=== PATIENT | female | born 1990 | race Caucasian/White ===

== ENCOUNTER 2016-10-22 19:00 | Emergency (ER) | payer SELFPAY ==
[2016-10-22 19:30] VITALS: BP 115/61
[2016-10-22 20:32] LABS: AMORPHOUS SEDIMENT,URINE TRACE /HPF; APPEARANCE,URINE TURBID; BILIRUBIN,URINE NEGATIVE (NEGATIVE); GLUCOSE, URINE NEGATIVE (NEGATIVE); KETONES,URINE NEGATIVE (NEGATIVE); LEUKOCYTE ESTERASE,URINE MODERATE (NEGATIVE); NITRITE,URINE NEGATIVE (NEGATIVE); PROTEIN,URINE NEGATIVE (NEGATIVE); URINE SPECIFIC GRAVITY 1.021; UROBILINOGEN,URINE NEGATIVE mg/dL (<2.0)
[2016-10-22] MEDS ORDERED: AZITHROMYCIN 250 MG TABLET PO ONE (21:28)
[2016-10-22] MEDS ORDERED: CEFTRIAXONE INJ 250 MG VIAL IM ONE (21:28)
[2016-10-22] MEDS ORDERED: NITROFURANTOIN MONOHYD/M-CRYST 100 MG CAPSULE PO ONE (21:28)
[2016-10-22] MEDS ORDERED: LIDOCAINE 1% INJ-PF (10 MG/ML) 30 ML SDV INJ ONE (21:28)
--- NOTE | 2016-10-22 21:28 | ER Document Report ---
ED GI/ - General Chief Complaint: STD Exposure Stated Complaint: POSSIBLE STD Time Seen by Provider: 10/22/16 21:27 Mode of Arrival: Ambulatory Information source: Patient Notes: 26-year-old female presents to ED for STD examination. She states that her boyfriend was tested positive for gonorrhea several months ago and was treated but she was never treated. She states she is now having a vaginal discharge is green and slimy with an odor. She denies any discomfort. She states she has about 4 months . TRAVEL OUTSIDE OF THE [place] IN LAST 30 DAYS: No - HPI Patient complains to provider of: Vaginal discharge Onset: Other Timing/Duration: Gradual Quality of pain: No pain Pain Level: Denies Vaginal bleeding (Compared to normal period): None Menstrual period history: Associated symptoms: Vaginal discharge Exacerbated by: Denies Relieved by: Denies Similar symptoms previously: No Recently seen / treated by doctor: No - Related Data Allergies/Adverse Reactions: No Known Allergies Allergy (Verified 10/22/16 19:25) Past Medical History - General Information source: Patient - Social History Smoking Status: Current Every Day Smoker Cigarette use (# per day): Yes - Pack per day Chew tobacco use (# tins/day): No Smoking Education Provided: Yes - Less than 2 minutes Frequency of alcohol use: None - States she drank up until she found out she was Drug Abuse: None - Up until she found out she was Occupation: none Lives with: Spouse/Significant other Family History: Reviewed & Not Pertinent - Past Medical History Cardiac Medical History: Reports: None Pulmonary Medical History: Reports: None EENT Medical History: Reports: None Neurological Medical History: Reports: None Endocrine Medical History: Reports: None Renal/ Medical History: Reports: None Malignancy Medical History: Reports: None GI Medical History: Reports: None Musculoskeltal Medical History: Reports Hx Fibromyalgia, Reports Hx Musculoskeletal Deformity, Reports Hx Musculoskeletal Trauma Skin Medical History: Reports Hx Cellulitis Psychiatric Medical History: Reports: Hx Anxiety, Hx Attention Deficit Hyperactivity Disorder, Hx Bipolar Disorder, Hx Depression, Hx Post Traumatic Stress Disorder Traumatic Medical History: Reports: None Infectious Medical History: Reports: None Past Surgical History: Reports: Hx Orthopedic Surgery - right hand, - Immunizations Immunizations up to date: Yes Hx Diphtheria, Pertussis, Tetanus Vaccination: Yes - 2010 Review of Systems - Review of Systems Constitutional: No symptoms reported EENT: No symptoms reported Cardiovascular: No symptoms reported Respiratory: No symptoms reported Gastrointestinal: No symptoms reported Genitourinary: No symptoms reported Female Genitourinary: , Vaginal discharge, Vaginal odor. denies: Vaginal bleeding Musculoskeletal: No symptoms reported Skin: No symptoms reported Hematologic/Lymphatic: No symptoms reported Neurological/Psychological: No symptoms reported -: Yes All other systems reviewed and negative Physical Exam - Vital signs Vitals: Temp Pulse Resp BP Pulse Ox 97.9 F 78 18 115/61 99 10/22/16 19:26 10/22/16 19:26 10/22/16 19:26 10/22/16 19:26 10/22/16 19:26 Interpretation: Normal - General General appearance: Appears well, Alert - HEENT Head: Normocephalic, Atraumatic Eyes: Normal Pupils: PERRL - Respiratory Respiratory status: No respiratory distress Chest status: Nontender Breath sounds: Normal Chest palpation: Normal - Cardiovascular Rhythm: Regular Heart sounds: Normal auscultation Murmur: No - Abdominal Inspection: Normal Distension: No distension Bowel sounds: Normal Tenderness: Nontender Organomegaly: No organomegaly - Back Back: Normal, Nontender - Extremities General upper extremity: Normal inspection, Nontender, Normal color, Normal ROM , Normal temperature General lower extremity: Normal inspection, Nontender, Normal color, Normal ROM , Normal temperature, Normal weight bearing. No: Angelique's sign - Neurological Neuro grossly intact: Yes Cognition: Normal Orientation: AAOx4 Amy Coma Scale Eye Opening: Spontaneous [place] Coma Scale Verbal: Oriented Amy Coma Scale Motor: Obeys Commands [place] Coma Scale Total: 15 Speech: Normal Motor strength normal: LUE, RUE, LLE, RLE Sensory: Normal - Psychological Associated symptoms: Normal affect, Normal mood - Skin Skin Temperature: Warm Skin Moisture: Dry Skin Color: Normal Course - Re-evaluation Re-evalutation: 10/22/16 21:47 Patient denies any pain or discomfort. Bowel sounds are present no pelvic tenderness. Urine was positive for UTI and bacteria. Due to patient's vaginal discharge she will be treated with the azithromycin and Rocephin injection. She will be given Macrobid for her UTI. 10/22/16 22:11 Patient was called and informed that she was positive for gonorrhea she has already been treated with Rocephin and azithromycin. 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 - Vital Signs Vital signs: Temp Pulse Resp BP Pulse Ox 97.9 F 78 18 115/61 99 10/22/16 19:26 10/22/16 19:26 10/22/16 19:26 10/22/16 19:26 10/22/16 19:26 - Laboratory Laboratory results interpreted by me: 10/22/16 10/22/16 20:10 20:10 Ur Leukocyte Esterase MODERATE H N.gonorrhoeae DNA (PCR) DETECTED H Discharge - Discharge Clinical Impression: Vaginitis Qualifiers: Chronicity: acute Qualified Code(s): N76.0 - Acute vaginitis Condition: Stable Disposition: HOME, SELF-CARE Instructions: [employer]-Make Ready Worker Doctors Additional Instructions: VAGINITIS: Your exam shows that you have vaginitis, a vaginal infection. The infection can be caused by a many different organisms, including trichomonas or Gardnerella. The usual symptoms are vaginal irritation and discharge. The treatment is usually antibiotics such as Flagyl. Laboratory tests can determine which germ is responsible. Use the medication as prescribed. Because this infection can be transmitted sexually, your sexual partner may need to be checked and treated also. If your physician has not discussed this with you, please check before resuming sexual relations. If a culture shows gonorrhea or chlamydia, the infection must be reported to the health department. Call the doctor if you develop pelvic pain, fever, or problems with urination, or if you don't improve as expected. URINARY TRACT INFECTION: Your evaluation indicates that you have a urinary tract infection. This is due to germs growing in the bladder. This is a common problem. This infection usually responds quickly to antibiotics. Your antibiotic should be taken exactly as prescribed. Drink plenty of fluids -- three to four quarts a day. Occasionally, a bladder anesthetic will be prescribed to help stop the feeling of urgency until the antibiotic has a chance to clear the infection. This may cause your urine to be dark orange. Certain urine infections require a culture. If the doctor obtained a culture, the results will be back in two days. You should call to see if a change in treatment is needed. A repeat urinalysis after you finish treatment is often recommended. The physician will let you know if further testing is required. Call the doctor if you develop fever, chills, flank pain, inability to urinate, or blood in the urine. NITROFURANTOIN (MACRODANTIN, MACROBID): You have received a prescription for nitrofurantoin (Macrodantin). This antibiotic is used for urinary tract infections. Women who are or nursing should notify the physician before taking this medicine. If you have ever had a problem caused by this medication in the past, be sure the physician is aware of it. Common side effects of this medicine include nausea, vomiting, or decreased appetite. Notify your physician if these side effects become severe. Immediately stop this medicine and call the physician if you develop cough , shortness of breath, chest pain, weakness, jaundice (yellow color of the skin and whites of the eyes), or a skin rash. Rocephin You have been given an injection of an antibiotic called Rocephin ( ceftriaxone). Sometimes the injection must be combined with antibiotic pills. For some infections, such as an uncomplicated ear infection, Rocephin provides all the antibiotic that's needed. The antibiotic will be in your body for about two days. For serious infections, we usually repeat doses of Rocephin daily. Side effects are very unusual following a shot. Women may develop vaginal yeast infections, and babies can get yeast (thrush) in the mouth following the use of antibiotics. Contact your physician if you have symptoms with this medication. Allergy to this antibiotic can result in hives, wheezing, faintness, or itching. If symptoms of allergy occur, call the doctor at once. AZITHROMYCIN: Azithromycin (Zithromax) is a broad spectrum antibiotic in the same class as erythromycin. It can treat a variety of bacterial infections, but is most frequently used for respiratory infections. Azithromycin is extremely long-lasting. It accumulates in body tissues and continues to kill bacteria for many days. In order to improve absorption, Azithromycin should be taken at least one hour before or two hours after a meal. It does not have the same strong tendency to upset the stomach as erythromycin and is usually very well tolerated. Patients who have had a rash or other true allergic reactions to erythromycin should not take this medication. Call if you develop gastrointestinal distress, severe diarrhea, rash, hives, itching, or shortness of breath. FOLLOW-UP CARE: If you have been referred to a physician for follow-up care, call the physician s office for an appointment as you were instructed or within the next two days. If you experience worsening or a significant change in your symptoms, notify the physician immediately or return to the Emergency Department at any time for re-evaluation. Prescriptions: Nitrofurantoin/Nitrofuran Mac [Macrobid 100 mg Capsule] 1 tab PO BID #20 capsule
[2016-10-22 22:00] LABS: CHLAM PCR NOT DETECTED (NOT DETECT)
== END 2016-10-22 21:54 | disposition home or self-care (01) ==
LOC: ER 19:00
DX: O98.219 Gonorrhea complicating pregnancy, unspecified trimester (principal); A54.02 Gonococcal vulvovaginitis, unspecified; O23.40 Unspecified infection of urinary tract in pregnancy, unspecified trimester; O99.330 Smoking (tobacco) complicating pregnancy, unspecified trimester; F17.210 Nicotine dependence, cigarettes, uncomplicated; Z3A.00 Weeks of gestation of pregnancy not specified
CPT/HCPCS: 99283; 96372; 87086; 81001; 87491; 87591; J3490; J0696; J8499

== ENCOUNTER 2017-01-19 09:45 | Outpatient (CLI) | payer SELFPAY ==
[2017-01-19 10:35] LABS: APPEARANCE,URINE CLOUDY; BILIRUBIN,URINE NEGATIVE (NEGATIVE); GLUCOSE, URINE NEGATIVE (NEGATIVE); KETONES,URINE 80 mg/dL (NEGATIVE); LEUKOCYTE ESTERASE,URINE NEGATIVE (NEGATIVE); NITRITE,URINE NEGATIVE (NEGATIVE); PROTEIN,URINE 30 mg/dL (NEGATIVE); URINE SPECIFIC GRAVITY 1.028
[2017-01-19 10:44] LABS: BACTERIA,URINE 2+ /HPF
[2017-01-19 11:10] LABS: URINE BARBITURATES SCREEN NEGATIVE; URINE METHADONE SCREEN NEGATIVE; URINE OPIATES LOW NEGATIVE; URINE PHENCYCLIDINE SCREEN NEGATIVE
--- NOTE | 2017-01-19 11:49 | RADIOLOGY REPORT (SQ) ---
EXAM DESCRIPTION: U/S OB 14+ TRNABD 1GES W/O DOP COMPLETED DATE/TIME: 01/19/2017 11:25 am REASON FOR STUDY: NPC, dates, complete OB, placenta, S/P fall, ABD p COMPARISON: None. TECHNIQUE: Static and Dynamic grayscale imaging performed of gravid uterus using transabdominal appr oach. Additional selected color Doppler and spectral images recorded. All stored on PACS. LIMITATIONS: None. FINDINGS: EGA: 20 weeks 3 days DAWSON: 04/10/2017 EFW: 1229 +/-182 grams PERCENTILE: 29 KAREN: 10.9 cm PLACENTA: Posterior GRADE: I PRESENTATION: Breech. ANATOMY: HEART RATE: 147 beats per minute. FOUR CHAMBER HEART: Visualized. THREE VESSEL CORD: Yes. CORD INSERTION: Visualized. KIDNEYS AND BLADDER: Visualized. Appear normal. STOMACH: Visualized. Appears normal. SPINE: Normal as visualized. BRAIN AND LATERAL VENTRICLES: Visualized. Appear normal. OTHER: No other significant finding. MATERNAL ADNEXA: Maternal ovaries not visualized. CERVICAL LENGTH: Not applicable. Greater than 20 weeks. Need transvaginal study if indicated. OTHER: No other significant finding. IMPRESSION: LIVING INTRAUTERINE . ESTIMATED GESTATIONAL AGE 20 weeks 3 days. NO VISUALIZED ANOMALIES. Trimester of : Third trimester - 28 weeks to delivery. TECHNICAL DOCUMENTATION: JOB ID: [id number] [employer]- All Rights Reserved
[2017-01-19 12:08] LABS: ABSOLUTE EOSINOPHILS # (AUTO) 0.1 10^3/uL (0.0-0.6); ABSOLUTE LYMPHOCYTES (AUTO) 2.9 10^3/uL (0.5-4.7); ABSOLUTE NEUT (AUTO) 6.8 10^3/uL (1.7-8.2); BASOPHILS % (AUTO) 0.3 % (0-2); EOSINOPHILS % (AUTO) 0.7 % (0-6); HEMATOCRIT 27.5 % (36.0-47.0); HEMOGLOBIN 9.6 g/dL (12.0-15.5); HGB HCT DIFFERENCE 1.3; MEAN CORPUSCULAR HEMOGLOBIN 31.3 pg (27.0-33.4); MEAN CORPUSCULAR VOLUME 90 fl (80-97); MONOCYTES % (AUTO) 9.3 % (3-13); RED BLOOD COUNT 3.07 10^6/uL (3.72-5.28); RED CELL DISTRIBUTION WIDTH 13.3 % (11.5-14.0); SEGMENTED NEUTROPHILS % (AUTO) 62.7 % (42-78); WHITE BLOOD COUNT 10.8 10^3/uL (4.0-10.5)
[2017-01-19 13:06] LABS: ADD HIVPANEL? NO; HIV (1 AND 2) ANTIBODY NEGATIVE (NEGATIVE)
== END 2017-01-19 12:05 | disposition home or self-care (01) ==
LOC: LC 09:45
PROVIDERS: ATTEND Obstetrics & Gynecology
PROC: 4A1HXCZ Monitoring of Products of Conception, Cardiac Rate, External Approach (ICD-10-PCS; principal; 2017-01-19)
DX: O47.02 False labor before 37 completed weeks of gestation, second trimester (principal); M54.9 Dorsalgia, unspecified; R07.81 Pleurodynia; Z3A.20 20 weeks gestation of pregnancy; W19.XXXA Unspecified fall, initial encounter
CPT/HCPCS: 59899; 86900; 86901; 36415; 87210; 86850; 85025; 86762; 86592; 81001; 87081; 87340; 86701; 80307 ×2; 87491; 87591; 76805; G0480 ×3

== ENCOUNTER 2017-03-27 21:00 | Outpatient (CLI) | payer SELFPAY ==
[2017-03-27 21:34] LABS: APPEARANCE,URINE CLOUDY; BILIRUBIN,URINE NEGATIVE (NEGATIVE); COLOR,URINE YELLOW; GLUCOSE, URINE NEGATIVE (NEGATIVE); KETONES,URINE NEGATIVE (NEGATIVE); LEUKOCYTE ESTERASE,URINE NEGATIVE (NEGATIVE); NITRITE,URINE NEGATIVE (NEGATIVE); PROTEIN,URINE NEGATIVE (NEGATIVE); URINE SPECIFIC GRAVITY 1.018
[2017-03-27 21:50] LABS: URINE BARBITURATES SCREEN NEGATIVE; URINE COCAINE SCREEN NEGATIVE; URINE METHADONE SCREEN NEGATIVE; URINE PHENCYCLIDINE SCREEN NEGATIVE
[2017-03-27 21:57] LABS: URINE BENZODIAZEPINES SCREEN UNCONFIRMED POSITIVE
[2017-03-27 21:58] LABS: URINE AMPHETAMINES SCREEN UNCONFIRMED POSITIVE; URINE MARIJUANA (THC) SCREEN UNCONFIRMED POSITIVE
[2017-04-05 12:37] LABS: BENZODIAZEPINE CONFIRMATION UR Negative (Cutoff=300)
[2017-04-05 13:36] LABS: AMPHETAMINE CONFIRMATION UR Positive (.)
== END 2017-03-27 22:54 | disposition home or self-care (01) ==
LOC: LC 21:00
PROVIDERS: ATTEND Obstetrics & Gynecology
PROC: 4A1HXCZ Monitoring of Products of Conception, Cardiac Rate, External Approach (ICD-10-PCS; principal; 2017-03-27)
DX: O47.1 False labor at or after 37 completed weeks of gestation (principal); Z3A.38 38 weeks gestation of pregnancy
CPT/HCPCS: 59025; 81005; 80307 ×2; G0480 ×5

== ENCOUNTER 2017-10-25 13:04 | Emergency (ER) | payer MEDICAID ==
[2017-10-25] MEDS ORDERED: MUPIROCIN 2% OINTMENT 22 GM TP ONE (14:05)
[2017-10-25] MEDS ORDERED: CEPHALEXIN 500 MG CAPSULE PO ONE (14:05)
--- NOTE | 2017-10-25 14:06 | ER Document Report ---
HPI - HPI Patient complains to provider of: Skin sores and anxiety Onset: Last week Onset/Duration: Persistent Pain Level: 3 Context: 27-year-old female that has a history of anxiety had a skin lesion on the dorsal left foot that she was given antibiotics for but she could not fill a prescription. She now has a crusted lesions on her face. Her psychiatrist that was prescribing Xanax Cymbalta and another benzodiazepine lost her license so she has to find another psychiatrist. She is feeling some anxiety but no withdrawal symptoms. Associated Symptoms: None Exacerbated by: Other - see above Relieved by: Denies - ROS ROS below otherwise negative: Yes Systems Reviewed and Negative: Yes All other systems reviewed and negative - REPRODUCTIVE Reproductive: DENIES: : Past Medical History - General Information source: Patient - Social History Smoking Status: Unknown if Ever Smoked Frequency of alcohol use: None Drug Abuse: None Lives with: Family Family History: Reviewed & Not Pertinent Endocrine Medical History: Renal/ Medical History: Denies: Hx Peritoneal Dialysis Musculoskeletal Medical History: Reports Hx Fibromyalgia, Reports Hx Musculoskeletal Deformity, Reports Hx Musculoskeletal Trauma Skin Medical History: Reports Hx Cellulitis Psychiatric Medical History: Reports: Hx Anxiety, Hx Attention Deficit Hyperactivity Disorder, Hx Bipolar Disorder, Hx Depression, Hx Post Traumatic Stress Disorder Past Surgical History: Reports: Hx Orthopedic Surgery - right hand, - Immunizations Immunizations up to date: Yes Hx Diphtheria, Pertussis, Tetanus Vaccination: Yes - 2010 Vertical Provider Document - CONSTITUTIONAL Agree With Documented VS: Yes Exam Limitations: No Limitations - INFECTION CONTROL TRAVEL OUTSIDE OF THE [place] IN LAST 30 DAYS: No - HEENT HEENT: negative: Conjuctival Injection Notes: 4 facial impetigo lesions no lymphangitis - NECK Neck: Supple. negative: Lymphadenopathy-Left, Lymphadenopathy-Right - RESPIRATORY Respiratory: Breath Sounds Normal, No Respiratory Distress - CARDIOVASCULAR Cardiovascular: Regular Rate, Regular Rhythm - MUSCULOSKELETAL/EXTREMETIES Musculoskeletal/Extremeties: MAEW - NEURO Level of Consciousness: Awake - DERM Notes: Impetigo lesion dorsal left foot no lymphangitis Course - Vital Signs Vital signs: Temp Pulse Resp BP Pulse Ox 97.5 F 106 H 16 111/67 100 10/25/17 13:36 10/25/17 13:36 10/25/17 13:36 10/25/17 13:36 10/25/17 13:36 Discharge - Discharge Clinical Impression: Impetigo, Anxiety Condition: Good Disposition: HOME, SELF-CARE Instructions: Anxiety ([facility]), Bactroban Ointment ([facility]), Benzodiazepines ([facility]), Cephalexin ([facility]), Impetigo ([facility]) Additional Instructions: Using antibacterial soap that has been given to you Bactroban small amount each of the areas 3 times a day for 5 days Cephalexin until it is gone New resources given for psychiatric counseling in the community Return to the emergency room for any worsening of the symptoms Prescriptions: Alprazolam [Xanax 0.25 mg Tablet] 0.25 mg PO QHS #20 tab Cephalexin Monohydrate [Keflex 500 mg Capsule] 500 mg PO QID #28 capsule
[2017-10-25 14:49] VITALS: BP 110/63
== END 2017-10-25 14:49 | disposition home or self-care (01) ==
LOC: ER 13:04
DX: L01.00 Impetigo, unspecified (principal); F41.9 Anxiety disorder, unspecified
CPT/HCPCS: 99283; J3490

== ENCOUNTER 2018-03-10 08:20 | Inpatient (IN) | payer MEDICAID ==
[2018-03-10] MEDS ORDERED: LIDOCAINE 1% INJ-PF (10 MG/ML) 30 ML SDV ONE ×2 (08:44→09:12)
[2018-03-10] MEDS ORDERED: OXYTOCIN/NORMAL SALINE 0 UNIT/0 ML RTUINJ ONE (08:44)
[2018-03-10] MEDS ORDERED: MISOPROSTOL 0.2 MG TABLET ONE ×2 (08:44→09:11)
[2018-03-10] MEDS ORDERED: PENICILLIN G-K 5 MILLION UNIT VIAL ONE (08:45)
--- NOTE | 2018-03-10 08:56 | Admission Physical ---
Datetime Report Generated by CPN: 03/10/2018 08:56 CURRENT ADMISSION Chief Complaint: Uterine Contractions; Suspected Ruptured Membranes Chief Complaint Other: PNC elsewhere, no records yet states DAWSON 03/31/18 has been getting PNC at [place] but recently moved Denies complications Hx 2 Term Close interval Preg-- 03/2017 Indication for Induction: Not Applicable Admit Impression : Active Labor Admit Plan: Initiate Labor Protocol Admit Plan- Other: GBS unknown, treat prophylactically ALLERGIES Medication Allergies: No Medication Allergies: No Known Allergies (10/25/2017) Latex: No Latex Allergies OBSTETRICAL HISTORY EDC: 03/31/2018 00:00 : 5 Para: 2 Term: 2 Cesareans: 0 Gestational Diabetes: No Rh Sensitization: No Incompetent Cervix: No BHAVIN: No Infertility: No ART Treatment: No Uterine Anomaly: No IUGR: No Hx Previous C/S: No Macrosomia: No Hx Loss/Stillborn: No PIH: No Hx : No Depression/PP Depression: No PTL/PROM: No Post Hemorrhage: No Current Procedures: Ultrasound Obstetrical History Comments: Hep C-Diagnosed 04/09/2017 SEE RECORDS Alcohol: No Marijuana : No Cocaine: No Other Illicit Drugs: No Cigarettes: Current Everyday Smoker. [id number] Cigarette Frequency: 5 - 10 per day Advised to Stop: Yes MEDICAL HISTORY Diabetes: No Blood Transfusion: No Pulmonary Disease (Asthma, TB): No Breast Disease: No Hypertension: No Curtain Mender Surgery: No Anesthetic Complications: No Abnormal Pap Smear: No Other Medical Diseases: No Hepatitis/Liver Disease: Yes Significant Family History: No Varicosities/Phlebitis: No Trauma/Violence : No Thyroid Dysfunction: No INFECTIOUS HISTORY Gonorrhea: No Genital Herpes: No Chlamydia: No Tuberculosis: No Syphilis: No Hepatitis: Yes HIV/AIDS Exposure: No Rash or Viral Illness: No HPV: No Infectious History Comments: HSV last putbreak years ago, no supressive therapy PHYSICAL EXAM General: Normal HEENT: Deferred Neurologic: Normal Thyroid: Deferred Heart: Normal Lungs: Normal Breast: Deferred Back: Deferred Abdomen: Normal Genitourinary Exam: Normal Extremities: Normal DTRs: Deferred Pelvic Type: Adequate VAGINAL EXAM Dilatation: 5 Effacement: 80 Station: -1 Contraction Comments: 2-4 min FETUS A EGA: 37.0 FHR- Baseline: 140 Variability: Moderate 6-25bpm Decelerations: None Admit Comment: PN records requested PLANS FOR LABOR AND DELIVERY Labor and Delivery: None Pain Management: Epidural Circumcision: N/A INFORMED CONSENT Assignment: Dilcia Murphy MD Signature: with User ID: [email or web address] : with User ID: [email or web address]
[2018-03-10] MEDS ORDERED: RINGERS SOLUTION,LACTATED 1,000 ML IV ONE (09:00)
[2018-03-10] MEDS ORDERED: RINGERS SOLUTION,LACTATED 1,000 ML IV PRN (09:00)
[2018-03-10] MEDS ORDERED: OXYTOCIN/NORMAL SALINE 20 UNIT/1,000 ML RTUINJ ONE (09:12)
[2018-03-10 10:23] LABS: HEMATOCRIT 31.3 % (36.0-47.0); HEMOGLOBIN 10.9 g/dL (12.0-15.5); MEAN CORPUSCULAR HEMOGLOBIN 31.3 pg (27.0-33.4); MEAN CORPUSCULAR HGB CONC 34.8 g/dL (32.0-36.0); MEAN CORPUSCULAR VOLUME 90 fl (80-97); PLATELET COUNT 221 10^3/uL (150-450); RED BLOOD COUNT 3.48 10^6/uL (3.72-5.28); RED CELL DISTRIBUTION WIDTH 13.8 % (11.5-14.0); WHITE BLOOD COUNT 11.5 10^3/uL (4.0-10.5)
[2018-03-10] MEDS ORDERED: IBUPROFEN 800 MG TABLET ONE (10:45)
[2018-03-10] MEDS ORDERED: BENZOCAINE/MENTHOL AEROSOL SPRAY 56 ML ONE (10:46)
[2018-03-10] MEDS ORDERED: OXYTOCIN/NORMAL SALINE 20 UNIT/1,000 ML RTUINJ IV PRN (11:18)
[2018-03-10] MEDS ORDERED: BENZOCAINE/MENTHOL AEROSOL SPRAY 56 ML TOP PRN (11:18)
[2018-03-10] MEDS ORDERED: MEASLES,MUMPS&RUBELLA VACC/PF 0.5 ML VIAL SUBCUT PRN (11:18)
[2018-03-10] MEDS ORDERED: ACETAMINOPHEN WITH CODEINE #3 TABLET PO PRN (11:18)
[2018-03-10] MEDS ORDERED: DIBUCAINE 1% OINTMENT 28 GM TP PRN (11:18)
[2018-03-10] MEDS ORDERED: ZOLPIDEM TARTRATE 5 MG TABLET PO PRN (11:18)
[2018-03-10] MEDS ORDERED: DIPH/PERTUSS(ACELL)/TETANUS VAC/PF 0.5 ML SYR (>=10YO) IM PRN (11:18)
[2018-03-10 11:21] LABS: APPEARANCE,URINE CLEAR; BILIRUBIN,URINE NEGATIVE (NEGATIVE); COLOR,URINE YELLOW; GLUCOSE, URINE NEGATIVE (NEGATIVE); KETONES,URINE NEGATIVE (NEGATIVE); LEUKOCYTE ESTERASE,URINE NEGATIVE (NEGATIVE); NITRITE,URINE NEGATIVE (NEGATIVE); PROTEIN,URINE NEGATIVE (NEGATIVE); URINE SPECIFIC GRAVITY 1.027
[2018-03-10] MEDS ORDERED: PENICILLIN G POTASSIUM 5,000,000 UNIT in DEXTROSE 5%-WATER 100 ML IV ONE (11:30)
[2018-03-10 11:37] LABS: URINE AMPHETAMINES SCREEN NEGATIVE; URINE BARBITURATES SCREEN NEGATIVE; URINE BENZODIAZEPINES SCREEN NEGATIVE; URINE COCAINE SCREEN NEGATIVE; URINE METHADONE SCREEN NEGATIVE; URINE PHENCYCLIDINE SCREEN NEGATIVE
[2018-03-10 11:43] LABS: URINE MARIJUANA (THC) SCREEN UNCONFIRMED POSITIVE
[2018-03-10] MEDS ORDERED: PENICILLIN G POTASSIUM 2,500,000 UNIT in DEXTROSE 5%-WATER 50 ML IV SCH (13:03)
--- NOTE | 2018-03-10 14:34 | Delivery Summary ---
Del Sum A-C Datetime Report Generated by CPN: 03/10/2018 14:34 DELIVERY PERSONNEL DELIVERY PERSONNEL: [id number] Delivery Doctor:: Steph Gama CNM Nurse Broach Grinder Certified:: Steph Gama CNM Labor and Delivery Nurse:: Renata White RNdye expert Nurse:: JASON Orellana Nursery Nurse:: Brennen Davalos/BELA: Hortensia Campos CNA II MATERNAL INFORMATION Delivery Anesthesia: None Medications After Delivery: Pitocin Bolus-Please Comment Estimated Blood Loss (ml): 150 Maternal Complications: Precipitous Labor (<3hrs) Provider Comments: SVDVF over intact perineum OA Infant vigorous, to mothers abd, rigid muscle tone noted cord clamped x 2 cut per FOB, 3vc noted placenta intact via arndt large amount clear fluid with delivery Bleeding stabilized FF@ U mother and infant stable LABOR SUMMARY EDC: 04/06/2018 00:00 No. Babies in Womb: 1 Attempted: No Labor Anesthesia: Intrathecal LABOR INFORMATION Reason for Induction: Not Applicable Onset of Labor: 03/10/2018 08:00 Complete Dilatation: 03/10/2018 10:15 Oxytocin: N/A Group B Beta Strep: pos Antibiotics # of Doses: 1 Antibiotics Time of Last Dose: 906 Name of Antibiotic Given: Pennicillin MEMBRANES Membranes Rupture Method: Spontaneous Rupture of Membranes: 03/10/2018 06:00 Length of Rupture (hr): 4.58 Amniotic Fluid Color: Clear Amniotic Fluid Amount: Scant Amniotic Fluid Odor: Normal STAGES OF LABOR Stage 1 hr: 2 Stage 1 min: 15 Stage 2 hr: 0 Stage 2 min: 20 Stage 3 hr: 0 Stage 3 min: 4 Total Time in Labor hr: 2 Total Time in Labor min: 39 VAGINAL DELIVERY Episiotomy: None Laceration #1: Periurethral Laceration Extension #1: First Degree Laceration Repair: Not Applicable Laceration Repair Note: no repairs needed Sponge Count Correct: Yes BABY A INFORMATION Delivery Date/Time: 03/10/2018 10:35 Method of Delivery: Vaginal Born in Route : No : N/A Forceps: N/A Vacuum Extraction: N/A Shoulder Dystocia : No PRESENTATION/POSITION BABY A Presentation: Cephalic Cephalic Presentation: Vertex Vertex Position: Left Occipital Anterior Breech Presentation: N/A PLACENTA INFORMATION BABY A Placenta Delivery Time : 03/10/2018 10:39 Placenta Method of Delivery: Spontaneous Placenta Status: Delivered SCORES BABY A Heart Rate 1 min: >100 bpm Resp Effort 1 min: Good Cry Reflex Irritability 1 min: Cough or Sneeze or Pulls Away Muscle Tone 1 min: Active Motion Color 1 min: Blue/Pale Resuscitation Effort 1 min: Tactile Stimulation SCORE 1 MIN: 8 Heart Rate 5 min: >100 bpm Resp Effort 5 min: Good Cry Reflex Irritability 5 min: Cough or Sneeze or Pulls Away Muscle Tone 5 min: Active Motion Color 5 min: Body [place], Extremities Blue SCORE 5 MIN: 9 INFANT INFORMATION BABY A Gestational Age at Delivery: 36.0 Gestational Status: Late - 34- 36.6 Weeks Infant Outcome : Liveborn Infant Condition : Stable Sex: Female IDENTIFICATION BABY A Infant Verification Date/Time: 03/10/2018 11:12 ID Band Number: [id number] Mother's Name Verified: Yes RN Verifying Infant: Kaitlin Marin RN/D Hector RN WEIGHT/LENGTH BABY A Infant Birthweight (gm): 2714 Infant Weight (lb): 6 Infant Weight (oz): 0 Infant Length (in): 19.50 Infant Length (cm): 49.53 CORD INFORMATION BABY A No. Cord Vessels: 3 Nuchal Cord : N/A Cord Blood Taken: Yes-For Storage (Mom's Blood type +) Suction: Mouth; Nose ASSESSMENT BABY A Infant Complications: None Physical Findings at Delivery: Within Normal Limits; Other Physical Findings- Other: rigid muscle tone Respirations: Appears Normal Infant Care By: Brennen Young RN Transferred To: Remains with Mother SIGNATURES Assignment: Dilcia Murphy MD Signature: with User ID: [email or web address] : with User ID: [email or web address] : I was personally available for consultation and serving as supervising physician for the MLP.
[2018-03-10] MEDS: IBUPROFEN 800 MG TABLET PO SCH ×2 (17:42→21:21)
[2018-03-10] MEDS: FERROUS SULFATE 325 MG TABLET PO SCH (17:46)
[2018-03-10] MEDS: DOCUSATE SODIUM 100 MG CAPSULE PO SCH (17:46)
[2018-03-11] MEDS: ACETAMINOPHEN WITH CODEINE #3 TABLET PO PRN ×2 (00:59→05:08)
[2018-03-11] MEDS: IBUPROFEN 800 MG TABLET PO SCH ×3 (05:09→22:08)
[2018-03-11] MEDS: DOCUSATE SODIUM 100 MG CAPSULE PO SCH ×2 (09:19→17:45)
[2018-03-11] MEDS: FERROUS SULFATE 325 MG TABLET PO SCH ×2 (09:19→17:45)
[2018-03-11] MEDS: SENNOSIDES/DOCUSATE 8.6-50 MG 1 EACH TABLET PO SCH (09:19)
[2018-03-11] MEDS: PRENATAL VITAMIN W DHA CAPSULE PO SCH (09:19)
[2018-03-11 09:31] LABS: HEMOGLOBIN 9.1 g/dL (12.0-15.5); MEAN CORPUSCULAR HEMOGLOBIN 31.8 pg (27.0-33.4); MEAN CORPUSCULAR VOLUME 91 fl (80-97); PLATELET COUNT 169 10^3/uL (150-450); RED BLOOD COUNT 2.86 10^6/uL (3.72-5.28); RED CELL DISTRIBUTION WIDTH 13.9 % (11.5-14.0); WHITE BLOOD COUNT 9.3 10^3/uL (4.0-10.5)
--- NOTE | 2018-03-11 12:18 | PDOC PROGRESS REPORT ---
Subjective-OB Progress Note for:: 03/11/18 Subjective: Pt doing well, no concerns. She reports light bleeding, reg diet and voiding without difficulty. Physical Exam (OB) Vital Signs: Temp Pulse Resp BP Pulse Ox 97.5 F 95 19 115/76 100 03/11/18 07:44 03/11/18 07:44 03/11/18 07:44 03/11/18 07:44 03/11/18 07:44 Intake & Output 03/10/18 03/11/18 03/12/18 06:59 06:59 06:59 Weight 62 kg - Lochia Lochia Amount: Scant < 10 ml Lochia Color: Rubra/Red - Abdomen Description: Tender, Soft Hernia Present: No Fundal Description: Firm, Midline Fundal Height: u/u - u/2 Objective-Diagnostic Laboratory: 03/11/18 08:43 03/11/18 08:43 WBC 9.3 RBC 2.86 L Hgb 9.1 L Hct 26.0 L MCV 91 MCH 31.8 MCHC 35.0 RDW 13.9 Plt Count 169 Assessment and Plan(PN) - Assessment and Plan (1) Active labor at term Is this a current diagnosis for this admission?: Yes (2) Hepatitis C carrier Is this a current diagnosis for this admission?: Yes (3) (spontaneous vaginal delivery) Is this a current diagnosis for this admission?: Yes - Time Spent with Patient Time with patient: Less than 15 minutes Medications reviewed and adjusted accordingly: Yes - Disposition Anticipated Discharge: Home Within: within 24 hours
[2018-03-12] MEDS: IBUPROFEN 800 MG TABLET PO SCH (06:06)
[2018-03-12 08:47] VITALS: BP 126/88
[2018-03-12] MEDS: FERROUS SULFATE 325 MG TABLET PO SCH (11:19)
[2018-03-12] MEDS: PRENATAL VITAMIN W DHA CAPSULE PO SCH (11:19)
[2018-03-12] MEDS: SENNOSIDES/DOCUSATE 8.6-50 MG 1 EACH TABLET PO SCH (11:20)
[2018-03-12] MEDS: DOCUSATE SODIUM 100 MG CAPSULE PO SCH (11:20)
--- NOTE | 2018-03-12 11:36 | PDOC DISCHARGE SUMMARY ---
Final Diagnosis Discharge Date: 03/12/18 - Final Diagnosis (1) Active labor at term Is this a current diagnosis for this admission?: Yes (2) Hepatitis C carrier Is this a current diagnosis for this admission?: Yes (3) (spontaneous vaginal delivery) Is this a current diagnosis for this admission?: Yes Discharge Data - Discharge Medication Home Medications: No Home Medications 03/10/18 Reason(s) for Admission: Onset of Labor Procedures: NST Intrapartum Procedure(s): Spontaneous Vaginal Delivery Complication(s): Laceration-Vaginal, Laceration-Periurethral Laceration-Degree: 1st - Diagnosis Test Laboratory: Temp Pulse Resp BP Pulse Ox 97.5 F 95 19 115/76 100 03/11/18 07:44 03/11/18 07:44 03/11/18 07:44 03/11/18 07:44 03/11/18 07:44 03/10/18 03/10/18 03/11/18 10:00 10:50 08:43 RBC 3.48 L 2.86 L Hgb 10.9 L 9.1 L Hct 31.3 L 26.0 L Urine Opiates Screen NEGATIVE - Discharge information/Instructions Discharge Activity: Balance Activity w/Rest, Pelvic Rest Discharge Diet: Regular Disposition: HOME, SELF-CARE Follow [facility] with: [facility] in: 3, Weeks
== END 2018-03-12 13:40 | disposition home or self-care (01) | DRG 806 ==
LOC: LC 08:20 → LR 08:51 → 2S 14:35
PROVIDERS: ADMIT Obstetrics & Gynecology; ATTEND Obstetrics & Gynecology
PROC: 10E0XZZ Delivery of Products of Conception, External Approach (ICD-10-PCS; principal; 2018-03-10)
PROC: 0HQ9XZZ Repair Perineum Skin, External Approach (ICD-10-PCS; 2018-03-10)
DX: O99.824 Streptococcus B carrier state complicating childbirth (principal); O98.42 Viral hepatitis complicating childbirth; Z37.0 Single live birth; O62.3 Precipitate labor; B18.2 Chronic viral hepatitis C; O71.82 Other specified trauma to perineum and vulva; O99.334 Smoking (tobacco) complicating childbirth; F17.210 Nicotine dependence, cigarettes, uncomplicated; Z3A.37 37 weeks gestation of pregnancy
CPT/HCPCS: 36415; 80307; 80349; 81001; 84112; 85027; 86592; 86850; 86900; 86901; G0480; J2540; J2590; J3490

== ENCOUNTER 2019-04-02 15:36 | Emergency (ER) | payer OTHER, MEDICAID ==
[2019-04-02] MEDS ORDERED: DIPHENHYDRAMINE HCL 25 MG CAPSULE PO ONE (16:55)
[2019-04-02] MEDS ORDERED: METOCLOPRAMIDE HCL 10 MG TABLET PO ONE (16:55)
--- NOTE | 2019-04-02 17:06 | ER Document Report ---
ED General - General Chief Complaint: Drug Abuse Stated Complaint: WITHDRAWAL/DRUGS Time Seen by Provider: 04/02/19 16:28 Mode of Arrival: Ambulatory Information source: Patient Notes: 28-year-old female approximately 6 months presents to the emergency department with complaints of nausea, chills, feeling shaky and abdominal cramping. Patient reports abdominal cramping is like Rob[place] Ruiz. Patient also reports that she has been taking Suboxone for the past 5 years and the last time she took it was last night. Patient is currently incarcerated at [facility]. She is here with [facility]. Patient reports her last menstrual period was September 2018. She has not received any type of care. Denies pain with void. Denies vaginal discharge denies vaginal eating. Patient reports she is nauseated but is also asking for something to eat. TRAVEL OUTSIDE OF THE [place] IN LAST 30 DAYS: No - HPI Onset: This morning Onset/Duration: Sudden Quality of pain: Cramping Associated symptoms: Nausea Exacerbated by: Denies Relieved by: Denies Similar symptoms previously: No Recently seen / treated by doctor: No - Related Data Allergies/Adverse Reactions: No Known Allergies Allergy (Verified 10/25/17 13:05) Past Medical History - General Information source: Patient Last Menstrual Period: 09/2018 - Social History Smoking Status: Current Every Day Smoker Cigarette use (# per day): Yes Frequency of alcohol use: None Drug Abuse: Prescription drugs, Other Lives with: Other - [facility] Family History: Reviewed & Not Pertinent Patient has suicidal ideation: No Patient has homicidal ideation: No Endocrine Medical History: Renal/ Medical History: Denies: Hx Peritoneal Dialysis Musculoskeletal Medical History: Reports Hx Fibromyalgia, Reports Hx Musculoskeletal Deformity, Reports Hx Musculoskeletal Trauma Skin Medical History: Reports Hx Cellulitis Psychiatric Medical History: Reports: Hx Anxiety, Hx Attention Deficit Hyperactivity Disorder, Hx Bipolar Disorder, Hx Depression, Hx Post Traumatic Stress Disorder Past Surgical History: Reports: Hx Orthopedic Surgery - right hand - Immunizations Immunizations up to date: Yes Hx Diphtheria, Pertussis, Tetanus Vaccination: Yes - 2010 Review of Systems - Review of Systems Notes: Review HPI for review of systems., All other systems negative Physical Exam - Vital signs Vitals: Temp Pulse Resp Pulse Ox 97.9 F 93 16 98 04/02/19 16:21 04/02/19 16:21 04/02/19 16:21 04/02/19 16:21 - General General appearance: Appears well, Alert - HEENT Head: Normocephalic, Atraumatic Eyes: Normal Pupils: PERRL Ears: Normal External canal: Normal Tympanic membrane: Normal Nasal: Normal Mouth/Lips: Normal Mucous membranes: Moist Pharynx: Normal Neck: Normal, Supple. No: Lymphadenopathy - Respiratory Respiratory status: No respiratory distress Chest status: Nontender Breath sounds: Normal Chest palpation: Normal - Cardiovascular Rhythm: Regular Heart sounds: Normal auscultation Murmur: No - Abdominal Inspection: Normal, Gravid female Distension: No distension Bowel sounds: Normal Tenderness: Nontender Organomegaly: No organomegaly - Extremities General upper extremity: Normal ROM General lower extremity: Normal ROM - Neurological Neuro grossly intact: Yes Cognition: Normal Orientation: AAOx4 [place] Coma Scale Eye Opening: Spontaneous Amy Coma Scale Verbal: Oriented Amy Coma Scale Motor: Obeys Commands [place] Coma Scale Total: 15 Speech: Normal - Psychological Associated symptoms: Normal affect, Normal mood - Skin Skin Temperature: Warm Skin Moisture: Dry Skin Color: Normal Course - Re-evaluation Re-evalutation: 04/02/19 17:13 28-year-old incarcerated female approximately 6 months presents emergency department with reports that she is in withdrawal from Suboxone. Patient reports last menstrual period was September 2018. Reports she has been taking Suboxone for the past 5 years. Has not had a dose since last night. Reports she feels nauseated shaky has chills and she also reports she is have abdominal cramping. Patient reports she has not received any type of care. Dr. Roberts OB on-call contacted and advised patient. We will do labs done here ultrasound ordered patient to be seen in L&D. Venita Coffey, entry level lab technician nurse on L&D contacted. She is aware of plan of care and agrees[facility] of [facility]. Patient will be discharged from the ED and follow-up with L&D after ultrasound. 04/02/19 18:45 Laboratory 04/02/19 04/02/19 04/02/19 17:00 17:00 17:00 WBC 10.7 H RBC 3.03 L Hgb 9.7 L Hct 26.5 L MCV 87 MCH 32.0 MCHC 36.6 H RDW 14.0 Plt Count 259 Lymph % (Auto) 15.4 [place] % (Auto) 7.7 Eos % (Auto) 0.2 Baso % (Auto) 0.4 Absolute Neuts (auto) 8.1 Absolute Lymphs (auto) 1.6 Absolute Monos (auto) 0.8 Absolute Eos (auto) 0.0 Absolute Basos (auto) 0.0 Seg Neutrophils % 76.3 Sodium 134.2 L Potassium 4.0 Chloride 108 H Carbon Dioxide 20 L Anion Gap 6 BUN 7 Creatinine 0.29 L Est GFR ( Amer) > 60 Est GFR (MDRD) Non-Af > 60 Glucose 83 Calcium 9.3 Total Bilirubin 0.4 Direct Bilirubin 0.0 Neonat Total Bilirubin Not Reportable Neonat Direct Bilirubin Not Reportable Neonat Indirect Bili Not Reportable AST 23 ALT 21 Alkaline Phosphatase 81 Total Protein 6.3 Albumin 3.2 L Urine Color YELLOW Urine Appearance SLIGHTLY-CLOUDY Urine pH 6.0 Ur Specific [place] 1.024 Urine Protein 30 H Urine Glucose (UA) NEGATIVE Urine Ketones 80 H Urine Blood NEGATIVE Urine Nitrite NEGATIVE Urine Bilirubin NEGATIVE Urine Urobilinogen 2.0 H Ur Leukocyte Esterase NEGATIVE Urine WBC (Auto) 2 Urine RBC (Auto) 2 Urine Bacteria (Auto) TRACE Squamous Epi Cells Auto 22 Urine Mucus (Auto) MANY Urine Ascorbic Acid 40 H Urine Opiates Screen Urine Methadone Screen Ur Barbiturates Screen Ur Phencyclidine Scrn Ur Amphetamines Screen U Benzodiazepines Scrn Urine Cocaine Screen U Marijuana (THC) Screen 04/02/19 17:00 WBC RBC Hgb Hct MCV MCH MCHC RDW Plt Count Lymph % (Auto) [place] % (Auto) Eos % (Auto) Baso % (Auto) Absolute Neuts (auto) Absolute Lymphs (auto) Absolute Monos (auto) Absolute Eos (auto) Absolute Basos (auto) Seg Neutrophils % Sodium Potassium Chloride Carbon Dioxide Anion Gap BUN Creatinine Est GFR ( Amer) Est GFR (MDRD) Non-Af Glucose Calcium Total Bilirubin Direct Bilirubin Neonat Total Bilirubin Neonat Direct Bilirubin Neonat Indirect Bili AST ALT Alkaline Phosphatase Total Protein Albumin Urine Color Urine Appearance Urine pH Ur Specific [place] Urine Protein Urine Glucose (UA) Urine Ketones Urine Blood Urine Nitrite Urine Bilirubin Urine Urobilinogen Ur Leukocyte Esterase Urine WBC (Auto) Urine RBC (Auto) Urine Bacteria (Auto) Squamous Epi Cells Auto Urine Mucus (Auto) Urine Ascorbic Acid Urine Opiates Screen UNCONFIRMED POSITIVE Urine Methadone Screen NEGATIVE Ur Barbiturates Screen NEGATIVE Ur Phencyclidine Scrn NEGATIVE Ur Amphetamines Screen U Benzodiazepines Scrn NEGATIVE Urine Cocaine Screen NEGATIVE U Marijuana (THC) Screen UNCONFIRMED POSITIVE Obstetrics Ultrasound 04/02/19 16:48 IMPRESSION: Single live intrauterine of gestational age 25 weeks 0 days based on today's examination. Fundal placenta. ESTIMATED GESTATIONAL AGE 25 weeks 0 days, estimated date of delivery 07/16/2019 NO VISUALIZED ANOMALIES. Trimester of : Second trimester - 13 weeks 1 day to 27 weeks 6 days. - Vital Signs Vital signs: Temp Pulse Resp BP Pulse Ox 97.9 F 93 16 98 04/02/19 16:21 04/02/19 16:21 04/02/19 16:21 04/02/19 16:21 - Laboratory Result Diagrams: 04/02/19 17:00 04/02/19 17:00 Laboratory results interpreted by me: 04/02/19 04/02/19 04/02/19 17:00 17:00 17:00 WBC 10.7 H RBC 3.03 L Hgb 9.7 L Hct 26.5 L MCHC 36.6 H Sodium 134.2 L Chloride 108 H Carbon Dioxide 20 L Creatinine 0.29 L Albumin 3.2 L Urine Protein 30 H Urine Ketones 80 H Urine Urobilinogen 2.0 H Urine Ascorbic Acid 40 H - Diagnostic Test Radiology reviewed: Reports reviewed - Consults dr roberts Time consulted: 17:16 Reason for consultation: 04/02/19 17:16 , possible 6 months with abd cramping, suboxone withdrawal Discharge - Discharge Clinical Impression: Withdrawal complaint Condition: Stable Disposition: OTHER Instructions: Use of Diphenhydramine, Nausea or Vomiting, Nonspecific ([facility]), ([facility]) Additional Instructions: *You have been evaluated for Suboxone withdrawal, nausea, shakiness, abdominal cramping, *Follow-up with L&D now *Return to ED for worsening condition, changes, needs
[2019-04-02 17:25] LABS: ABSOLUTE LYMPHOCYTES (AUTO) 1.6 10^3/uL (0.5-4.7); ABSOLUTE MONOCYTES (AUTO) 0.8 10^3/uL (0.1-1.4); ABSOLUTE NEUT (AUTO) 8.1 10^3/uL (1.7-8.2); BASOPHILS % (AUTO) 0.4 % (0-2); EOSINOPHILS % (AUTO) 0.2 % (0-6); HEMATOCRIT 26.5 % (36.0-47.0); HEMOGLOBIN 9.7 g/dL (12.0-15.5); LYMPHOCYTES % (AUTO) 15.4 % (13-45); MEAN CORPUSCULAR HGB CONC 36.6 g/dL (32.0-36.0); MEAN CORPUSCULAR VOLUME 87 fl (80-97); MONOCYTES % (AUTO) 7.7 % (3-13); PLATELET COUNT 259 10^3/uL (150-450); RED BLOOD COUNT 3.03 10^6/uL (3.72-5.28); SEGMENTED NEUTROPHILS % (AUTO) 76.3 % (42-78); TOTAL CELLS COUNTED % (AUTO) 100 %; WHITE BLOOD COUNT 10.7 10^3/uL (4.0-10.5)
[2019-04-02 17:40] LABS: APPEARANCE,URINE SLIGHTLY-CLOUDY; BILIRUBIN,URINE NEGATIVE (NEGATIVE); COLOR,URINE YELLOW; GLUCOSE, URINE NEGATIVE (NEGATIVE); KETONES,URINE 80 mg/dL (NEGATIVE); LEUKOCYTE ESTERASE,URINE NEGATIVE (NEGATIVE); NITRITE,URINE NEGATIVE (NEGATIVE); PROTEIN,URINE 30 mg/dL (NEGATIVE); URINE SPECIFIC GRAVITY 1.024
[2019-04-02 17:46] LABS: ALBUMIN 3.2 g/dL (3.5-5.0); ALKALINE PHOSPHATASE 81 U/L (38-126); ANION GAP 6 (5-19); ASPARTATE AMINO TRANSFERASE 23 U/L (14-36); BILIRUBIN,TOTAL 0.4 mg/dL (0.2-1.3); BLOOD UREA NITROGEN 7 mg/dL (7-20); CALCIUM 9.3 mg/dL (8.4-10.2); CARBON DIOXIDE 20 mmol/L (22-30); CHLORIDE 108 mmol/L (98-107); GLUCOSE 83 mg/dL (75-110); TOTAL PROTEIN 6.3 g/dL (6.3-8.2)
[2019-04-02 17:54] LABS: URINE BARBITURATES SCREEN NEGATIVE; URINE BENZODIAZEPINES SCREEN NEGATIVE; URINE COCAINE SCREEN NEGATIVE; URINE METHADONE SCREEN NEGATIVE; URINE PHENCYCLIDINE SCREEN NEGATIVE
[2019-04-02 18:11] LABS: URINE MARIJUANA (THC) SCREEN UNCONFIRMED POSITIVE
--- NOTE | 2019-04-02 18:30 | RADIOLOGY REPORT (SQ) ---
EXAM DESCRIPTION: U/S OB LIMITED COMPLETED DATE/TIME: 04/02/2019 4:46 pm REASON FOR STUDY: PREG ABD CRAMPING. Estimated date of delivery 07/16/2019 COMPARISON: None. TECHNIQUE: Static and Dynamic grayscale imaging performed of gravid uterus using transabdominal appr oach. Additional selected color Doppler and spectral images recorded. All stored on PACS. Limited transabdominal grayscale ultrasound for evaluation of specific requested obstetrical paramete rs. LIMITATIONS: None. FINDINGS: FETUSES SEEN:1 EGA: 25 weeks 0 days Calculated using BPD,FL,HC,AC documented on images. No discrepancy with clinica l dates. DAWSON: 07/16/2019 EFW: 730 g +/-108 grams PERCENTILE: Not available KAREN: Adequate. 18.4 cm PLACENTA: Fundal. No previa. PRESENTATION: Breech. ANATOMY: HEART RATE: 153 beats per minute. Limited anatomic evaluation was available. FOUR CHAMBER HEART: Not well visualized due to position and shadowing from the spine. Within the vinson its of the exam appears normal. THREE VESSEL CORD: Yes. CORD INSERTION: Not visualized. KIDNEYS AND BLADDER: Not definitely visualized. STOMACH: Visualized. Appears normal. SPINE: Normal as visualized. BRAIN AND LATERAL VENTRICLES: Visualized. Appear normal. OTHER: No other significant finding. MATERNAL ADNEXA: Maternal ovaries not visualized. CERVICAL LENGTH: 2.3 cm Closed. OTHER: No other significant finding. IMPRESSION: Single live intrauterine of gestational age 25 weeks 0 days based on today's e xamination. Fundal placenta. ESTIMATED GESTATIONAL AGE 25 weeks 0 days, estimated date of delivery 07/16/2019 NO VISUALIZED ANOMALIES. Trimester of : Second trimester - 13 weeks 1 day to 27 weeks 6 days. TECHNICAL DOCUMENTATION: JOB ID: [id number] 2010 [employer]- All Rights Reserved Reading location - IP/workstation name: [email or web address]
== END 2019-04-02 17:44 | disposition other institution (70) ==
LOC: ER 15:36
DX: O99.322 Drug use complicating pregnancy, second trimester (principal); F19.939 Other psychoactive substance use, unspecified with withdrawal, unspecified; O26.892 Other specified pregnancy related conditions, second trimester; R11.0 Nausea; R68.83 Chills (without fever); R10.9 Unspecified abdominal pain; O99.332 Smoking (tobacco) complicating pregnancy, second trimester; F17.210 Nicotine dependence, cigarettes, uncomplicated; Z3A.27 27 weeks gestation of pregnancy
CPT/HCPCS: 36415; 76815; 80053; 80307; 81001; 85025; 99285

== ENCOUNTER 2019-04-02 17:35 | Outpatient (CLI) | payer MEDICAID ==
[2019-04-02 18:30] LABS: ABSOLUTE LYMPHOCYTES (AUTO) 1.8 10^3/uL (0.5-4.7); ABSOLUTE MONOCYTES (AUTO) 0.8 10^3/uL (0.1-1.4); ABSOLUTE NEUT (AUTO) 8.9 10^3/uL (1.7-8.2); BASOPHILS % (AUTO) 0.2 % (0-2); EOSINOPHILS % (AUTO) 0.2 % (0-6); HEMATOCRIT 29.2 % (36.0-47.0); HEMOGLOBIN 9.9 g/dL (12.0-15.5); LYMPHOCYTES % (AUTO) 15.6 % (13-45); MEAN CORPUSCULAR HEMOGLOBIN 30.1 pg (27.0-33.4); MEAN CORPUSCULAR HGB CONC 33.9 g/dL (32.0-36.0); MEAN CORPUSCULAR VOLUME 89 fl (80-97); MONOCYTES % (AUTO) 6.8 % (3-13); PLATELET COUNT 279 10^3/uL (150-450); RED BLOOD COUNT 3.29 10^6/uL (3.72-5.28); RED CELL DISTRIBUTION WIDTH 14.1 % (11.5-14.0); SEGMENTED NEUTROPHILS % (AUTO) 77.2 % (42-78); TOTAL CELLS COUNTED % (AUTO) 100 %; WHITE BLOOD COUNT 11.5 10^3/uL (4.0-10.5)
[2019-04-04 08:08] LABS: HEPATITIS C VIRUS AB >11.0 s/co ratio (0.0-0.9); HEPATITS B SURFACE ANTIGEN Negative (Negative)
== END 2019-04-02 19:02 | disposition home or self-care (01) ==
LOC: LC 17:35
PROVIDERS: ATTEND Obstetrics & Gynecology Gynecology
PROC: 4A1HXCZ Monitoring of Products of Conception, Cardiac Rate, External Approach (ICD-10-PCS; principal; 2019-04-02)
DX: Z36.89 Encounter for other specified antenatal screening (principal); Z3A.25 25 weeks gestation of pregnancy
CPT/HCPCS: 59899; 86900; 86901; 36415; 86850; 86762; 86592; 87340; 86701; 80307; 86803; 86804; G0480 ×3; 80349